=== PATIENT | female | born 1950 | race Caucasian/White ===

== ENCOUNTER → 2020-04-19 11:39 | Outpatient (BNVA) | payer MEDICARE, OTHER, SELFPAY | PROVIDERS: Family Provider Physician Assistant; PCP Physician Assistant; Referring Provider Physician Assistant; Visit Provider Nurse Practitioner Family | DX: N39.0 Urinary tract infection, site not specified (principal) | CPT/HCPCS: 80053; 81003 ==

== ENCOUNTER → 2020-06-05 15:38 | Outpatient (BNVA) | payer MEDICARE, OTHER, SELFPAY | PROVIDERS: Family Provider Physician Assistant; PCP Physician Assistant; Visit Provider Urology | DX: N39.0 Urinary tract infection, site not specified (principal); B37.3 Candidiasis of vulva and vagina | CPT/HCPCS: 81003 ==

== ENCOUNTER → 2020-10-03 16:40 | Outpatient (BNVA) | payer MEDICARE, OTHER, SELFPAY | PROVIDERS: Family Provider Physician Assistant; PCP Physician Assistant; Visit Provider Urology | DX: N39.0 Urinary tract infection, site not specified (principal) | CPT/HCPCS: 81003; 87086 ==

== ENCOUNTER 2021-01-03 08:26 | Outpatient (CLI) | payer MEDICARE, OTHER, SELFPAY ==
--- NOTE | 2021-01-03 08:31 | CT_ITS ---
WS: [id number] CT HEAD NONCONTRAST HISTORY: SYNCOPE-COLLAPSE TECHNIQUE: Contiguous axial imaging performed through the brain in 2.5 mm imaging. Bone and soft tiss ue windows. All CT scans at [facility] use at least one of these dose optimization techniq ues: automated exposure control; mA and/or kV adjustment per patient size (includes targeted exams wh ere dose is matched to clinical indication); or iterative reconstruction. DLP: 859.77 mGycm COMPARISON: None available. No acute intracranial hemorrhage, midline shift or mass effect. Mild bifrontal lobe atrophy. Very mild chronic microvascular ischemic disease. No prior infarct. Ventricles: Normal size with no hydrocephalus. No inferior displacement of cerebellar tonsils. Paranasal sinuses: Mild mucoperiosteal thickening in the ethmoid air cells. Mastoid air cells: Well pneumatized. Calvarium and scalp: Skull is intact with no soft tissue edema or swelling. CT/CT head wo con* [id number] IMPRESSION: 1. No acute intracranial hemorrhage or edema. 2. Mild bifrontal lobe atrophy and chronic ischemic disease.
== END 2021-01-03 08:27 | disposition home or self-care (01) ==
PROVIDERS: PCP Physician Assistant; Visit Provider Physician Assistant
DX: R55 Syncope and collapse (principal); I67.82 Cerebral ischemia; G31.9 Degenerative disease of nervous system, unspecified
CPT/HCPCS: 70450

== ENCOUNTER 2021-03-22 17:00 | Emergency (ER) | payer MEDICARE, OTHER, SELFPAY ==
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
[2021-03-22 18:00] VITALS: BP 126/64; PULSE 70; RESP 18; TEMP 36.6; O2SAT 97; BMI 24.4
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
== END 2021-03-22 22:41 | disposition left against medical advice (07) ==
PROVIDERS: PCP Physician Assistant
DX: Z53.21 Procedure and treatment not carried out due to patient leaving prior to being seen by health care provider (principal)
CPT/HCPCS: 71101; 73120; 73562

== ENCOUNTER 2021-04-24 13:17 | Outpatient (CLI) | payer MEDICARE, OTHER, SELFPAY ==
--- NOTE | 2021-04-24 13:30 | XR_ITS ---
WS: [email or web address] Left hand, 3 views, 04/24/2021 Clinical Data: OSTEOPOROSIS Comparison: None. Findings: No fractures or dislocations are seen. The soft tissues are unremarkable. The joint spaces are normal XR/XR hand LT min 3V* [id number] Impression: Negative left hand.
--- NOTE | 2021-04-24 13:30 | XR_ITS ---
WS: [email or web address] Right hand, 3 views, 04/24/2021 Clinical Data: OSTEOPOROSIS Comparison: Right hand, 03/22/2021. Findings: No fractures or dislocations are seen. The soft tissues are unremarkable. The joint space s are normal There is an old ulnar styloid fracture. XR/XR hand RT min 3V* [id number] Impression: Negative right hand.
--- NOTE | 2021-04-24 13:31 | XR_ITS ---
WS: [email or web address] Left wrist, 3 views, 04/24/2021 Clinical Data: OA Comparison: None. Findings: No fractures or dislocations are seen. The carpal bones are intact. There is no soft tissue swelling. The distal radius and ulna are not remarkable. There may be an accessory ossicle or an old left ulnar styloid fracture. XR/XR wrist LT min 3V* [id number] Impression: Negative left wrist.
--- NOTE | 2021-04-24 13:31 | XR_ITS ---
WS: [email or web address] Right wrist, 3 views, 04/24/2021 Clinical Data: OA Comparison: None. Findings: No fractures or dislocations are seen. The carpal bones are intact. There is no soft tissue swelling. The distal radius and ulna are not remarkable. There is probably an old fracture of the ulnar styloid. XR/XR wrist RT min 3V* [id number] Impression: Negative right wrist.
--- NOTE | 2021-04-24 13:32 | XR_ITS ---
WS: [email or web address] Left foot, 3 views, 04/24/2021 Clinical Data: OA Comparison: None. Findings: No fractures or dislocations are seen. No bone destruction or erosion is noted. The joint spaces and soft tissues are normal. XR/XR foot LT min 3V* [id number] Impression: Negative left foot.
--- NOTE | 2021-04-24 13:32 | XR_ITS ---
WS: [email or web address] Right foot, 3 views, 04/24/2021 Clinical Data: OA Comparison: None. Findings: No fractures or dislocations are seen. No bone destruction or erosion is noted. The joint spaces and soft tissues are normal. XR/XR foot RT min 3V* [id number] Impression: Negative right foot.
--- NOTE | 2021-04-24 13:33 | XR_ITS ---
WS: [email or web address] Right ankle, 3 views, 04/24/2021 Clinical Data: OA Comparison: None. Findings: No fractures or dislocations are seen. The ankle mortise is normal. The talus and calcaneus are unrem arkable. No soft tissue swelling over the medial or lateral malleolus is seen. There is a small plantar spur. XR/XR ankle RT min 3V* [id number] Impression: Negative right ankle.
--- NOTE | 2021-04-24 13:33 | XR_ITS ---
WS: [email or web address] Cervical spine, 3 views, 04/24/2021 Clinical Data: NECK PAIN Comparison: None. Findings: No compression fractures are seen. There is degenerative disc narrowing at all levels from C3-C4 through C7-T1. There is loss of the normal lordotic curvature. There is osteophyte formation fr om C3 through C7. There is no prevertebral soft tissue swelling. The odontoid is unremarkable. The so ft tissues of the neck and the lung apices are normal. XR/XR cervical spine 3V* [id number] Impression: 1. Degenerative disc narrowing from C3-C4 through C7-T1. 2. Osteophytes from C3 through C7
--- NOTE | 2021-04-24 13:33 | XR_ITS ---
WS: [email or web address] Left ankle, 3 views, 04/24/2021 Clinical Data: OA Comparison: None. Findings: No fractures or dislocations are seen. The ankle mortise is normal. The talus and calcaneus are unrem arkable. No soft tissue swelling over the medial or lateral malleolus is seen. XR/XR ankle LT min 3V* [id number] Impression: Negative left ankle.
--- NOTE | 2021-04-24 13:34 | XR_ITS ---
WS: [email or web address] Lumbar spine, 3 views, 04/24/2021 Clinical Data: BACK PAIN Comparison: None. Findings: No compression fractures are seen. There is degenerative disc narrowing at L3-L4, L4-L5 and L5-S1. Th ere is a 0.9 cm subluxation of L4 on L5. There is anterior osteophyte formation of the lower thoracic and L1 vertebral body. There is osteophyte formation at the anterior superior aspect of L5.. The tra nsverse processes and SI joints are normal. There is a left hip arthroplasty. XR/XR lumbar spine 2-3V* [id number] Impression: 1. Degenerative disc narrowing from L3-L4 through L5-S1. 2. Anterior osteophytes. 3. 0.9 cm subluxation of L4 on L5.
== END 2021-04-24 13:18 | disposition home or self-care (01) ==
LOC: RAD 13:25
PROVIDERS: PCP Physician Assistant; Visit Provider Nurse Practitioner Family
DX: M54.50 Low back pain, unspecified (principal); M54.2 Cervicalgia; M19.90 Unspecified osteoarthritis, unspecified site; M25.78 Osteophyte, vertebrae; S33.140A Subluxation of L4/L5 lumbar vertebra, initial encounter; X58.XXXA Exposure to other specified factors, initial encounter
CPT/HCPCS: 72040; 72100; 73110; 73130; 73610; 73630

== ENCOUNTER → 2021-10-10 08:32 | Outpatient (BNVA) | payer MEDICARE, OTHER, SELFPAY | PROVIDERS: PCP Physician Assistant; Visit Provider Internal Medicine | DX: M19.90 Unspecified osteoarthritis, unspecified site (principal); M81.0 Age-related osteoporosis without current pathological fracture; M48.10 Ankylosing hyperostosis [Forestier], site unspecified; H54.7 Unspecified visual loss; Z11.59 Encounter for screening for other viral diseases; Z87.891 Personal history of nicotine dependence | CPT/HCPCS: 72202; 80053; 85025; 85651; 86140; 86200; 86431; 86704; 86803; 87340; 99204 ==

== ENCOUNTER → 2021-10-21 08:54 | Outpatient (BNVA) | payer MEDICARE, OTHER, SELFPAY | PROVIDERS: PCP Physician Assistant; Visit Provider Internal Medicine | DX: M19.90 Unspecified osteoarthritis, unspecified site (principal); M48.10 Ankylosing hyperostosis [Forestier], site unspecified; M81.0 Age-related osteoporosis without current pathological fracture; Z79.899 Other long term (current) drug therapy; R70.0 Elevated erythrocyte sedimentation rate; Z87.891 Personal history of nicotine dependence | CPT/HCPCS: 99214 ==

== ENCOUNTER 2022-03-18 14:54 | Outpatient (CLI) | payer MEDICARE, OTHER, SELFPAY ==
--- NOTE | 2022-03-18 15:04 | XR_ITS ---
WS: [email or web address] SCREENING DEXA SCAN [place] CLINICAL INFORMATION: OSTEOPOROSIS COMPARISON: None. FINDINGS: The L1-L4 bone mineral density measures 0.921 g/cm2. This corresponds to a T score score of -2.2 and Z score of -0.5. Right femoral neck bone mineral density measures 0.711. This corresponds to a T score -2.4 and Z sco re of -0.9. XR/XR DEXA axial skeleton* [id number] IMPRESSION: Osteopenia Patient's FRAX calculated 10 year probability for major osteoporotic fracture i s 16.4 % and osteoporotic hip fracture is 4.6%.
== END 2022-03-18 14:55 | disposition home or self-care (01) ==
LOC: RAD 14:55
PROVIDERS: PCP Electrodiagnostic Medicine; Visit Provider Electrodiagnostic Medicine
DX: M81.0 Age-related osteoporosis without current pathological fracture (principal); M85.80 Other specified disorders of bone density and structure, unspecified site
CPT/HCPCS: 77080